=== PATIENT | male | born 1975 | race American Indian/Alaskan Native ===

== ENCOUNTER 2017-10-14 02:38 | Emergency (ER) | payer BC, OTHER ==
[2017-10-14 02:39] VITALS: BMI 28.2
[2017-10-14 04:10] VITALS: RESP 18; TEMP 98.1
--- NOTE | 2017-10-14 04:54 | ED PDOC ---
Arrival/HPI - General Chief Complaint: Male Genitourinary Time Seen by Provider: 10/14/17 04:32 Historian: Patient - History of Present Illness Narrative History of Present Illness (Text): 10/14/17 04:54 A 41 year old male, with no significant past medical history, presents to the emergency department complaining of burning on urination with blood tinged. Patient denies any history of back pain, fever, chills, abdominal pain. Denies any other complaints at this time. Symptom Onset: Sudden Symptom Course: Unchanged Activities at Onset: Rest Context: Home Past Medical History - Provider Review Nursing Documentation Reviewed: Yes - Infectious Disease Hx of Infectious Diseases: None - Tetanus Immunization Tetanus Immunization: Up to Date - Cardiac Hx Cardiac Disorders: No - Pulmonary Hx Asthma: Yes - Neurological Hx Neurological Disorder: No - HEENT Hx HEENT Disorder: No - Renal Hx Renal Disorder: No - Endocrine/Metabolic Hx Endocrine Disorders: No - Hematological/Oncological Hx Blood Disorders: No - Integumentary Hx Dermatological Disorder: No (SCARRING TO LEFT FOOT .I&D WOUND .STEPPED ON A NAIL/SHARP OBJECT.) - Musculoskeletal/Rheumatological Hx Musculoskeletal Disorders: No Hx Falls: No - Gastrointestinal Hx Gastrointestinal Disorders: No - Genitourinary/Gynecological Hx Genitourinary Disorders: No - Psychiatric Hx Psychophysiologic Disorder: No Hx Substance Use: No - Anesthesia Hx Anesthesia: No Hx Anesthesia Reactions: No Hx Malignant Hyperthermia: No Family/Social History - Physician Review Nursing Documentation Reviewed: Yes Family/Social History: No Known Family HX Smoking Status: Never Smoked Hx Alcohol Use: Yes (OCCASIONALLY) Hx Substance Use: No Allergies/Home Meds Allergies/Adverse Reactions: Allergies shrimp Allergy (Verified 10/14/17 04:11) SWELLING dust Allergy (Uncoded 10/14/17 04:11) RASH Review of Systems - Physician Review All systems were reviewed & negative as marked: Yes - Review of Systems Constitutional: absent: Fevers, Other (chills) Gastrointestinal: absent: Abdominal Pain Genitourinary Male: Hematuria, Other (burning on urination) Musculoskeletal: absent: Back Pain Physical Exam Vital Signs Reviewed: Yes Vital Signs Temp Pulse Resp BP Pulse Ox 10/14/17 05:23 62 18 117/80 98 10/14/17 04:06 98.1 F 77 18 117/62 100 Temperature: Afebrile Blood Pressure: Normal Pulse: Regular Respiratory Rate: Normal Appearance: Positive for: Well-Appearing, Non-Toxic, Comfortable Pain Distress: None Mental Status: Positive for: Alert and Oriented X 3 - Systems Exam Head: Present: Atraumatic, Normocephalic Pupils: Present: PERRL Extroacular Muscles: Present: EOMI Conjunctiva: Present: Normal Mouth: Present: Moist Mucous Membranes Pharnyx: Present: Normal Neck: Present: Normal Range of Motion Respiratory/Chest: Present: Clear to Auscultation, Good Air Exchange. No: Respiratory Distress, Accessory Muscle Use Cardiovascular: Present: Regular Rate and Rhythm, Normal S1, S2. No: Murmurs Abdomen: No: Tenderness, Distention, Peritoneal Signs Back: Present: Normal Inspection. No: CVA Tenderness Upper Extremity: Present: Normal Inspection. No: Cyanosis, Edema Lower Extremity: Present: Normal Inspection. No: Edema Neurological: Present: GCS=15, CN II-XII Intact, Speech Normal Skin: Present: Warm, Dry, Normal Color. No: Rashes Psychiatric: Present: Alert, Oriented x 3, Normal Insight, Normal Concentration Medical Decision Making ED Course and Treatment: 10/14/17 04:51 Impression: A 41 year old male with burning on urination and hematuria. Plan: -- Urinalysis -- Reassess and disposition Progress Notes: - Lab Interpretations Lab Results: Lab Results 10/14/17 04:59: Urine Color Yellow, Urine Appearance Sl cloudy, Urine pH 6.0, Ur Specific [place] >= 1.030, Urine Protein Trace H, Urine Glucose (UA) Negative , Urine Ketones Negative, Urine Blood Moderate H, Urine Nitrate Negative, Urine Bilirubin Negative, Urine Urobilinogen 0.2, Ur Leukocyte Esterase Trace H, Urine RBC 2 - 5, Urine WBC 5 - 10, Ur Epithelial Cells 0 - 2, Urine Bacteria Rare, Urine Other Usperm - Scribe Statement The provider has reviewed the documentation as recorded by the Anayeli Almanza Provider Scribe Attestation: All medical record entries made by the Scribe were at my direction and personally dictated by me. I have reviewed the chart and agree that the record accurately reflects my personal performance of the history, physical exam, medical decision making, and the department course for this patient. I have also personally directed, reviewed, and agree with the discharge instructions and disposition. Disposition/Present on Arrival - Present on Arrival Any Indicators Present on Arrival: No History of DVT/PE: No History of Uncontrolled Diabetes: No Urinary Catheter: No History of Decub. Ulcer: No History Surgical Site Infection Following: None - Disposition Have Diagnosis and Disposition been Completed?: Yes Diagnosis: UTI (urinary tract infection) Disposition: HOME/ ROUTINE Disposition Time: 05:45 Patient Plan: Discharge Condition: GOOD Discharge Instructions (ExitCare): Urinary Tract Infection, Adult (DC) Additional Instructions: Drink plenty of liquids/take meds as prescribed/follow up with the urologist this week Prescriptions: Cephalexin [cephalexin] 500 mg PO BID #10 cap Referrals: Aamir Beasley MD [Staff Provider] - Follow up with primary Forms: [employer] (Bengali)
[2017-10-14 05:17] LABS: URINE BILIRUBIN NEGATIVE (NEGATIVE); URINE BLOOD MODERATE (NEGATIVE); URINE GLUCOSE (UA) NEGATIVE (NEGATIVE); URINE LEUKOCYTE ESTERASE TRACE Leu/uL (NEGATIVE); URINE PROTEIN TRACE mg/dL (<30 mg/dL); URINE UROBILINOGEN 0.2 E.U./dL (<1 E.U./dL)
[2017-10-14 05:24] VITALS: BP 117/80; PULSE 62; O2SAT 98
[2017-10-14 05:25] LABS: URINE APPEARANCE SL CLOUDY (CLEAR); URINE COLOR YELLOW (YELLOW)
[2017-10-14 05:28] LABS: URINE EPITHELIAL CELLS 0 - 2 /hpf (0-5)
[2017-10-14 05:29] LABS: URINE BACTERIA RARE (NEG)
== END 2017-10-14 05:55 | disposition home or self-care (01) ==
LOC: ED 02:38
DX: N39.0 Urinary tract infection, site not specified (principal)

== ENCOUNTER 2018-11-20 14:14 | Observation (INO) | payer BC ==
[2018-11-20 14:20] VITALS: BMI 28.0
--- NOTE | 2018-11-20 15:07 | RAD ---
Date of service: 11/20/2018 HISTORY: chest pain COMPARISON: 01/13/2016. FINDINGS: LUNGS: The lungs are well inflated and clear. PLEURA: No pleural effusions or pneumothorax. CARDIOVASCULAR: The heart is normal in size. No aortic atherosclerotic calcifications present. OSSEOUS STRUCTURES: Within normal limits for the patient's age. VISUALIZED UPPER ABDOMEN: Normal. OTHER FINDINGS: None. IMPRESSION: No active pulmonary disease.
--- NOTE | 2018-11-20 15:14 | ED PDOC ---
Arrival/HPI - General Chief Complaint: Chest Pain Time Seen by Provider: 11/20/18 14:35 Historian: Patient - History of Present Illness Narrative History of Present Illness (Text): 11/20/18 15:09 42 year old M with pmh of hyperlipidemia and Asthma presents complaining of sharp left sided local chest pain since last night. Patient report he sweating and increased HR at onset. He admits to taking [place] which failed to rel ieve any pain. Patient mentioned he had similar pain 2 months ago but resolved with [place]. Patient denies any fevers, chills, headache, dizziness, shortness of breath, cough, abdominal pain, nausea, vomiting, diarrhea, or any other complaint. Time/Duration: 24 hours Symptom Onset: Sudden Symptom Course: Unchanged Activities at Onset: Light Context: Home Past Medical History - Provider Review Nursing Documentation Reviewed: Yes - Infectious Disease Hx of Infectious Diseases: None - Tetanus Immunization Tetanus Immunization: Up to Date - Cardiac Hx Cardiac Disorders: No - Pulmonary Hx Asthma: Yes - Neurological Hx Neurological Disorder: No - HEENT Hx HEENT Disorder: No - Renal Hx Renal Disorder: No - Endocrine/Metabolic Hx Endocrine Disorders: No - Hematological/Oncological Hx Blood Disorders: No - Integumentary Hx Dermatological Disorder: No (SCARRING TO LEFT FOOT .I&D WOUND 05-22-15.STEPPED ON A NAIL/SHARP OBJECT.) - Musculoskeletal/Rheumatological Hx Musculoskeletal Disorders: No Hx Falls: No - Gastrointestinal Hx Gastrointestinal Disorders: No - Genitourinary/Gynecological Hx Genitourinary Disorders: No - Psychiatric Hx Psychophysiologic Disorder: No Hx Substance Use: No - Anesthesia Hx Anesthesia: No Hx Anesthesia Reactions: No Hx Malignant Hyperthermia: No Family/Social History - Physician Review Nursing Documentation Reviewed: Yes Family/Social History: Unknown Family HX Smoking Status: Never Smoked Hx Alcohol Use: Yes (OCCASIONALLY) Hx Substance Use: No Allergies/Home Meds Allergies/Adverse Reactions: Allergies shrimp Allergy (Verified 11/20/18 14:32) SWELLING dust Allergy (Uncoded 11/20/18 14:32) RASH Home Medications: Home Meds Medication Instructions Recorded Confirmed No Known Home Med 11/20/18 11/20/18 Review of Systems - Physician Review All systems were reviewed & negative as marked: Yes - Review of Systems Constitutional: absent: Fevers ENT: absent: Sore Throat, Rhinorrhea, Epistaxis Respiratory: absent: SOB, Cough, Wheezing Cardiovascular: Chest Pain Gastrointestinal: absent: Abdominal Pain, Diarrhea, Vomiting Genitourinary Male: absent: Dysuria, Frequency Musculoskeletal: absent: Arthralgias Skin: absent: Rash Neurological: absent: Headache, Dizziness Physical Exam Vital Signs Reviewed: Yes Vital Signs Temp Pulse Resp BP Pulse Ox 11/20/18 15:03 79 18 123/72 95 11/20/18 14:17 98.2 F 64 18 111/72 98 Temperature: Afebrile Blood Pressure: Normal Pulse: Regular Respiratory Rate: Normal Appearance: Positive for: Well-Appearing, Non-Toxic, Comfortable Pain Distress: Mild Mental Status: Positive for: Alert and Oriented X 3 - Systems Exam Head: Present: Atraumatic, Normocephalic Pupils: Present: PERRL Extroacular Muscles: Present: EOMI Conjunctiva: Present: Normal Mouth: Present: Moist Mucous Membranes Neck: Present: Normal Range of Motion Respiratory/Chest: Present: Clear to Auscultation, Good Air Exchange, Other (anterior chest wall tenderness to left side). No: Respiratory Distress, Accessory Muscle Use Cardiovascular: Present: Regular Rate and Rhythm, Normal S1, S2. No: Murmurs Abdomen: No: Tenderness, Distention, Peritoneal Signs Back: Present: Normal Inspection Upper Extremity: Present: Normal Inspection. No: Cyanosis, Edema Lower Extremity: Present: Normal Inspection. No: Edema Neurological: Present: GCS=15, CN II-XII Intact, Speech Normal Skin: Present: Warm, Dry, Normal Color. No: Rashes Psychiatric: Present: Alert, Oriented x 3, Normal Insight, Normal Concentration Medical Decision Making ED Course and Treatment: 11/20/18 15:14 Impression: 42 year old M presents complaining of sharp left sided local chest pain since last night PERC: Negative HEART Score: 1 Plan: -- Labs -- Toradol -- Aspirin -- Urinalysis -- Reassess and disposition Progress Notes: 11/20/18 16:42 Labs reviewed with negative troponin, BNP and d-dimer slightly elevated to 294. Patient updated on test result findings. 11/20/18 19:30 NSR @ 64 BPM, No ST elevations, No QT prolongation - Lab Interpretations Lab Results: 11/20/18 15:11 11/20/18 15:11 Lab Results 11/20/18 15:11: Sodium 141, Potassium 3.9, Chloride 104, Carbon Dioxide 29, Anion Gap 11, BUN 20, Creatinine 0.9, Est GFR ( Amer) > 60, Est GFR (Non- Af Amer) > 60, Random Glucose 113 H, Calcium 8.7, Magnesium 2.0, Total Bilirubin 0.4, AST 27, ALT 30, Alkaline Phosphatase 68, Troponin I < 0.01, NT-Pro-B Natriuret Pep < 11.1, Total Protein 7.1, Albumin 3.7, Globulin 3.4, Albumin/Globulin Ratio 1.1 11/20/18 15:11: PT 13.3 H, INR 1.20, APTT 31.7, D-Dimer, Quantitative 294 H 11/20/18 15:11: WBC 7.8, RBC 5.29, Hgb 14.3, Hct 43.1, MCV 81.5, MCH 27.0, MCHC 33.2, RDW 14.2, Plt Count 184, MPV 9.4, Neut % (Auto) 59.3, Lymph % (Auto) 28.4, Nolan % (Auto) 8.6 H, Eos % (Auto) 3.6, Baso % (Auto) 0.1, Lymph # (Auto) 2.2, Nolan # (Auto) 0.7 H, Eos # (Auto) 0.3, Baso # (Auto) 0.01, Absolute Neuts (auto) 4.63 I have reviewed the lab results: Yes - RAD Interpretation Narrative RAD Interpretations (Text): 11/20/18 16:17 Chest X-ray -- No active pulmonary disease Radiology Orders: 11/20/18 14:36 CHEST PORTABLE [RAD] Stat Stator Plate Washer: Radiologist - Medication Orders Current Medication Orders: Aspirin (Aspirin Chewable) 324 mg PO STAT STA Stop: 11/20/18 15:08 Nitroglycerin (Nitrostat Sl Tab) 0.4 mg SL STAT STA Stop: 11/20/18 15:08 - Scribe Statement The provider has reviewed the documentation as recorded by the [place] All medical record entries made by the Scribe were at my direction and personally dictated by me. I have reviewed the chart and agree that the record accurately reflects my personal performance of the history, physical exam, medical decision making, and the department course for this patient. I have also personally directed, reviewed, and agree with the discharge instructions and disposition. Disposition/Present on Arrival - Present on Arrival History of DVT/PE: No History of Uncontrolled Diabetes: No Urinary Catheter: No History of Decub. Ulcer: No History Surgical Site Infection Following: None - Disposition Disposition: HOSPITALIZED
[2018-11-20 15:21] LABS: BASO # 0.01 K/mm3 (0.0-2.0); BASO % 0.1 % (0.0-3.0); EOS # 0.3 (0.0-0.7); EOS % 3.6 % (1.5-5.0); HEMOGLOBIN 14.3 g/dL (14.0-18.0); LYMPH # 2.2 (1.2-3.4); LYMPH % 28.4 % (22.0-35.0); MEAN CELL VOLUME 81.5 fl (80.0-105.0); MEAN CORPUSCULAR HGB CONC 33.2 g/dl (31.0-37.0); MEAN PLATELET VOLUME 9.4 fl (7.0-11.0); MONO # 0.7 (0.1-0.6); MONO % 8.6 % (1.0-6.0); RBC 5.29 10^6/uL (3.5-6.1); RED CELL DISTRIBUTION WIDTH 14.2 % (11.5-14.5); WHITE BLOOD COUNT 7.8 10^3/uL (4.5-11.0)
[2018-11-20 15:35] LABS: ALB/GLOB RATIO 1.1 (1.1-1.8); ALBUMIN 3.7 g/dL (3.0-4.8); ALT/SGPT 30 U/L (7-56); AST/SGOT 27 U/L (17-59); BLOOD UREA NITROGEN 20 mg/dL (7-21); CALCIUM 8.7 mg/dL (8.4-10.5); GFR NON-AFRICAN AMERICAN > 60
[2018-11-20 15:40] LABS: INR 1.2; PARTIAL THROMBOPLASTIN TIME 31.7 Seconds (26.9-38.3); PROTHROMBIN TIME 13.3 SECONDS (9.4-12.5)
[2018-11-20 15:44] LABS: TROPONIN I < 0.01 ng/mL
[2018-11-20 15:57] LABS: B-TYPE NATRIURETIC PEPTIDE < 11.1 pg/mL (0-450)
[2018-11-20 17:40] LABS: URINE BILIRUBIN NEGATIVE (NEGATIVE); URINE BLOOD NEGATIVE (NEGATIVE); URINE GLUCOSE (UA) NEGATIVE (NEGATIVE); URINE LEUKOCYTE ESTERASE NEGATIVE Leu/uL (NEGATIVE)
[2018-11-20] MEDS ORDERED: Morphine 2 mg/ml ISec IVP STA (17:40)
[2018-11-20] MEDS ORDERED: Iohexol 350 MG/100 ML VIAL ONE (17:49)
[2018-11-20 18:02] LABS: URINE APPEARANCE CLEAR (CLEAR); URINE COLOR YELLOW (YELLOW)
[2018-11-20 18:03] LABS: URINE PROTEIN NEGATIVE mg/dL (<30 mg/dL)
[2018-11-20 18:11] LABS: BARBITURATES, UR NEGATIVE (NEGATIVE); BENZODIAZEPINES, UR NEGATIVE (NEGATIVE); OPIATES, UR NEGATIVE (NEGATIVE); PHENCYCLIDINE, UR NEGATIVE (NEGATIVE)
[2018-11-20] MEDS ORDERED: Enoxaparin 100 mg Syringe SC STA (20:18)
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
[2018-11-20] MEDS ORDERED: Pneumococcal 23-Valent Vaccine IM ONE (22:09)
[2018-11-20] MEDS ORDERED: Albuterol-Ipratrop 3 mg / 0.5 (3 ml) UD IH PRN (22:17)
[2018-11-21 04:11] LABS: HEMOGLOBIN 14.1 g/dL (14.0-18.0); MEAN CELL VOLUME 81.9 fl (80.0-105.0); MEAN CORPUSCULAR HEMOGLOBIN 26.8 pg (25.0-35.0); MEAN CORPUSCULAR HGB CONC 32.7 g/dl (31.0-37.0); MEAN PLATELET VOLUME 8.8 fl (7.0-11.0); RBC 5.26 10^6/uL (3.5-6.1); RED CELL DISTRIBUTION WIDTH 14.3 % (11.5-14.5); WHITE BLOOD COUNT 8.2 10^3/uL (4.5-11.0)
[2018-11-21 04:31] LABS: LDL CHOLESTEROL 138 mg/dL (0-129)
[2018-11-21 04:34] LABS: TROPONIN I < 0.01 ng/mL
[2018-11-21 04:35] LABS: ALB/GLOB RATIO 1.1 (1.1-1.8); ALBUMIN 3.7 g/dL (3.0-4.8); ALT/SGPT 23 U/L (7-56); AST/SGOT 18 U/L (17-59); BLOOD UREA NITROGEN 18 mg/dL (7-21); CALCIUM 8.6 mg/dL (8.4-10.5); GFR NON-AFRICAN AMERICAN > 60; HDL CHOLESTEROL 38 mg/dL (29-60)
[2018-11-21] MEDS: Pantoprazole 40 mg EC Tab PO SCH (05:30)
--- NOTE | 2018-11-21 09:41 | CT ---
Date of service: 11/20/2018 PROCEDURE: CT Chest with contrast (Pulmonary Angiogram) HISTORY: SOB w/ reproducible chest pain, elevated D-dimer COMPARISON: None available. TECHNIQUE: Axial computed tomography images were obtained of the chest in the pulmonary arterial phase of enhancement. Coronal and sagittal reformatted images were created and reviewed. Intravenous contrast dose: 100 mL Omnipaque 350 Radiation dose: Total exam DLP = 445.92 mGy-cm. This CT exam was performed using one or more of the following dose reduction techniques: Automated exposure control, adjustment of the mA and/or kV according to patient size, and/or use of iterative reconstruction technique. FINDINGS: PULMONARY ARTERIES: Bilateral pulmonary emboli seen in right lower lobe and lingular subsegmental pulmonary arteries. AORTA: No acute findings. No thoracic aortic aneurysm. No aortic atherosclerotic calcification or mural plaque present. LUNGS: Bibasilar dependent atelectasis. No nodule, mass or pulmonary consolidation. PLEURAL SPACES: Unremarkable. No effusion or pneumothorax. HEART: Unremarkable. No cardiomegaly. No significant pericardial effusion. LYMPH NODES: No lymphadenopathy. BONES, CHEST WALL: Unremarkable. No fracture or destructive lesion OTHER FINDINGS: Unremarkable. IMPRESSION: Bilateral subsegmental pulmonary emboli in right lower lobe and lingular branches.
[2018-11-21] MEDS: Enoxaparin 100 mg Syringe SC SCH ×2 (10:02→20:37)
--- NOTE | 2018-11-21 16:27 | CARD ---
APPROVED REPORT Date of service: 11/21/2018 EXAM: Two-dimensional and M-mode echocardiogram with Doppler and color Doppler. INDICATION Chest Pain 2D DIMENSIONS Left Atrium (2D)3.8 (1.6-4.0cm)IVSd1.2 (0.7-1.1cm) Aortic Root (2D)2.8 (2.0-3.7cm)LVDd4.2 (3.9-5.9cm) PWd1.1 (0.7-1.1cm)LVDs2.7 (2.5-4.0cm) FS (%) 36.0 %LVEF (%)66.1 (>50%) M-Mode DIMENSIONS Aortic Cusp Exc.1.90 (1.5-2.0cm) Aortic Valve AoV Peak Nmfvwcrx192.0cm/Philippe Peak GR.10mmHg Mitral Valve MV E Mfwfruer73.1cm/sMV A Ffzponjt92.9cm/sE/A ratio1.1 TDI Lateral E' Peak V14.30cm/sMedial E' Peak V8.77cm/sE/Lateral E'5.7 E/Medial E'9.4 Pulmonary Valve PV Peak Jpgclymw48.0cm/sPV Peak Grad.4mmHg Tricuspid Valve TR Peak Mfloawyc065hi/sRAP [id number] Peak Gr.22mmHg [id number] LEFT VENTRICLE The left ventricle is normal size. There is normal left ventricular wall thickness. The left ventricular function is normal. The left ventricular ejection fraction is within the normal range. There is normal LV segmental wall motion. The left ventricular diastolic function is normal. RIGHT VENTRICLE The right ventricle is normal size. There is normal right ventricular wall thickness. The right ventricular systolic function is normal. ATRIA The left atrium size is normal. The right atrium size is normal. AORTIC VALVE The aortic valve is mildly thickened. No aortic regurgitation is present. There is no aortic valvular stenosis. MITRAL VALVE The mitral valve is normal in structure. Mitral regurgitation is trace. There is no mitral valve stenosis. TRICUSPID VALVE The tricuspid valve is normal in structure. There is trace tricuspid regurgitation. PULMONIC VALVE The pulmonary valve is normal in structure. There is no pulmonic valvular regurgitation. GREAT VESSELS The aortic root is normal in size. The IVC is normal in size and collapses >50% with inspiration. PERICARDIAL EFFUSION There is no pericardial effusion. <Conclusion> The left ventricle is normal size. There is normal left ventricular wall thickness. The left ventricular function is normal. The left ventricular ejection fraction is within the normal range. There is normal LV segmental wall motion. The left ventricular diastolic function is normal. Mitral regurgitation is trace. There is trace tricuspid regurgitation.
--- NOTE | 2018-11-21 19:10 | CARD ---
APPROVED REPORT Date of service: 11/20/2018 EKG Measurement Heart [id number] <Conclusion> Normal sinus rhythm with sinus arrhythmia Normal ECG
[2018-11-22 00:34] VITALS: RESP 18
[2018-11-22] MEDS: Pantoprazole 40 mg EC Tab PO SCH (05:42)
[2018-11-22 06:58] LABS: HEMOGLOBIN 13.5 g/dL (14.0-18.0); MEAN CORPUSCULAR HEMOGLOBIN 26.4 pg (25.0-35.0); MEAN CORPUSCULAR HGB CONC 32.2 g/dl (31.0-37.0); MEAN PLATELET VOLUME 9.5 fl (7.0-11.0); RBC 5.11 10^6/uL (3.5-6.1); RED CELL DISTRIBUTION WIDTH 14.1 % (11.5-14.5); WHITE BLOOD COUNT 7.5 10^3/uL (4.5-11.0)
[2018-11-22 08:02] LABS: ALB/GLOB RATIO 1.1 (1.1-1.8); ALBUMIN 3.6 g/dL (3.0-4.8); ALT/SGPT 18 U/L (7-56); AST/SGOT 20 U/L (17-59); BLOOD UREA NITROGEN 11 mg/dL (7-21); CALCIUM 8.4 mg/dL (8.4-10.5); GFR NON-AFRICAN AMERICAN > 60
[2018-11-22 08:42] VITALS: BP 124/77; TEMP 98.7; O2SAT 96
[2018-11-22] MEDS: Enoxaparin 100 mg Syringe SC SCH (09:06)
[2018-11-22 10:55] VITALS: PULSE 73
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
--- NOTE | 2018-11-22 22:48 | US ---
HISTORY: Leg pain and swelling. Evaluate for DVT PHYSICIAN(S): Sancho Jackson MD. TECHNIQUE: Duplex sonography and color-flow Doppler with graded compression were used to evaluate the deep venous systems of both lower extremities. FINDINGS: The visualized deep venous systems of both lower extremities are sonographically normal and compressible. Normal wave forms and augmentation are seen. There is no sonographic evidence for deep venous thrombosis in the visualized segments of both lower extremities. IMPRESSION: No sonographic evidence for deep venous thrombosis in the visualized segments of both lower extremities.
== END 2018-11-22 13:47 | disposition home or self-care (01) ==
LOC: ED 14:14 → ERH 17:30 → 3RSO 19:39
PROVIDERS: ADMIT Internal Medicine; ATTEND Internal Medicine
DX: I26.99 Other pulmonary embolism without acute cor pulmonale (principal); R07.89 Other chest pain; E78.5 Hyperlipidemia, unspecified; K21.9 Gastro-esophageal reflux disease without esophagitis; J45.909 Unspecified asthma, uncomplicated; M54.5 Low back pain; G89.29 Other chronic pain; Z82.49 Family history of ischemic heart disease and other diseases of the circulatory system; Z83.2 Family history of diseases of the blood and blood-forming organs and certain disorders involving the immune mechanism; Z83.3 Family history of diabetes mellitus
CPT/HCPCS: 36415; 71045; 71275; 80053; 80061; 81003; 83036; 83735; 83880; 84443; 84484; 85025; 85027; 85378; 85610; 85730; 93005; 93306; 93970; 96374; 96375; 99283; G0378; G0480; J1650; J1885; J2270; Q9967